=== PATIENT | male | born 1950 | race Native Hawaiian/Other Pacific Islander ===

== ENCOUNTER 2017-02-02 15:14 | Outpatient (CLI) | payer OTHER, BC ==
[2017-02-02 16:16] LABS: PLATELET COUNT 195 K/uL (142-355)
[2017-02-02 17:07] LABS: POTASSIUM 4.8 mmol/L (3.6-5.2); SODIUM 135 mmol/L (136-145)
== END 2017-02-02 19:11 | disposition home or self-care (01) ==
LOC: LAB 15:14
PROVIDERS: Nurse Practitioner Family
DX: E11.9 Type 2 diabetes mellitus without complications (principal); E03.8 Other specified hypothyroidism; I10 Essential (primary) hypertension; E78.4 Other hyperlipidemia
CPT/HCPCS: 36415; 80053; 80061; 83036; 84439; 84443; 85027

== ENCOUNTER 2022-06-29 16:29 | Outpatient (CLI) | payer BC ==
[2022-06-29 16:54] LABS: PLATELET COUNT 227 K/uL (142-355)
== END 2022-06-29 19:02 | disposition home or self-care (01) ==
LOC: LABW 16:29
PROVIDERS: ATTEND Nurse Practitioner Family
DX: Z00.00 Encounter for general adult medical examination without abnormal findings (principal); I10 Essential (primary) hypertension; R53.81 Other malaise; E03.8 Other specified hypothyroidism; Z79.899 Other long term (current) drug therapy; N42.9 Disorder of prostate, unspecified; Z12.5 Encounter for screening for malignant neoplasm of prostate; M12.88 Other specific arthropathies, not elsewhere classified, other specified site; R60.0 Localized edema; E56.8 Deficiency of other vitamins; R53.83 Other fatigue; E55.9 Vitamin D deficiency, unspecified; R79.89 Other specified abnormal findings of blood chemistry; D50.8 Other iron deficiency anemias
CPT/HCPCS: 36415; 80053; 80061; 82306; 82378; 82607; 82670; 82728; 82746; 83540; 84153; 84402; 84403; 84439; 84443; 84481; 84550; 85027; 85652; 86038; 86430

== ENCOUNTER 2022-07-05 12:39 | Outpatient (CLI) | payer BC | END 2022-07-05 20:15 | disposition home or self-care (01) | LOC: LAB 12:39 | PROVIDERS: ATTEND Nurse Practitioner Family | DX: Z00.00 Encounter for general adult medical examination without abnormal findings (principal); E55.9 Vitamin D deficiency, unspecified; R79.89 Other specified abnormal findings of blood chemistry; D50.8 Other iron deficiency anemias; I10 Essential (primary) hypertension; R53.81 Other malaise; E03.8 Other specified hypothyroidism; Z79.899 Other long term (current) drug therapy; N42.89 Other specified disorders of prostate; Z12.5 Encounter for screening for malignant neoplasm of prostate; M12.9 Arthropathy, unspecified; R60.0 Localized edema; E56.9 Vitamin deficiency, unspecified; R53.83 Other fatigue | CPT/HCPCS: 84630 ==

== ENCOUNTER 2022-09-02 10:42 | Outpatient (CLI) | payer BC | END 2022-09-02 19:04 | disposition home or self-care (01) | LOC: LABW 10:42 | PROVIDERS: ATTEND Internal Medicine Nephrology | DX: N17.9 Acute kidney failure, unspecified (principal) | CPT/HCPCS: 36415; 80069 ==

== ENCOUNTER 2023-02-14 16:03 | Outpatient (CLI) | payer BC ==
[2023-02-14 16:25] LABS: PLATELET COUNT 196 K/uL (142-355)
[2023-02-14 16:47] LABS: POTASSIUM 3.9 mmol/L (3.6-5.2)
== END 2023-02-14 19:19 | disposition home or self-care (01) ==
LOC: LABW 16:03
PROVIDERS: ATTEND Nurse Practitioner Family
DX: Z00.00 Encounter for general adult medical examination without abnormal findings (principal); E11.9 Type 2 diabetes mellitus without complications; I10 Essential (primary) hypertension; R53.81 Other malaise; Z79.899 Other long term (current) drug therapy; N42.9 Disorder of prostate, unspecified; Z12.5 Encounter for screening for malignant neoplasm of prostate; M12.9 Arthropathy, unspecified; R60.0 Localized edema; E55.9 Vitamin D deficiency, unspecified; R79.89 Other specified abnormal findings of blood chemistry; E56.9 Vitamin deficiency, unspecified; R53.83 Other fatigue
CPT/HCPCS: 36415; 80053; 80061; 82306; 82378; 82607; 82670; 82728; 82746; 83540; 84153; 84402; 84403; 84443; 84550; 84630; 85027; 85652; 86038; 86431